=== PATIENT | male | born 1990 | race Caucasian/White ===

== ENCOUNTER 2019-06-10 05:55 | Day surgery (SDC) | payer OTHER ==
[~2019-06-10] VITALS: Ht 170.2 cm; Wt 118.4 kg
[~2019-06-10 05:55] MED LIST: DICLOFEN 3%-HYA30 GM; FLOMAX0.4 MG PO; HYDROXYZINE HCL50 MG PO; PAXIL40 MG PO; VASELINE18 ML TOP
[2019-06-10] MEDS ORDERED: SEBEX SHAMPOO118 ML TOP (06:05)
[2019-06-10] MEDS ORDERED: NON-ASPIRIN PA325 MG PO (06:14)
--- NOTE | 2019-06-10 08:52 | NUR ---
06/10/19 0852 Sheets,Carmel 0881 PT ARRIVED TO PACU ASLEEP AND SECOND RN DOING JAW THRUST TO MAINTAIN AIRWAY, O2 AT 6L VIA MASK. PT NONAROUSABLE TO PAINFUL STIMULI 0831 PT REACTIVE TO PAINFUL STIMULI AND ENCOURAGE TO DEEP BREATHE AND COUGH. PT BACK TO SLEEP. RESP EVEN AND UNLABORED, SMALL AMOUNT OF SNORING NOTED. 0839 PT WOKE TO PAINFUL STIMULI AND O2 SAT 100%, O2 MASK REMOVED. 0846 PT WOKE TO TACTILE STIMULI AND ENCOURAGED TO DEEP BREATHE AND COUGH, PT COUGHING OFF AND ON AND DEEP BREATHING. O2 SAT 90% AND INCREASED TO MID 90S. PT DENIES PAIN AND NAUSEA.
--- NOTE | 2019-06-10 09:13 | NUR ---
COFFEE, ICED WATER AND PUDDING GIVEN. OFFICERS AT BEDSIDE.
[2019-06-10] MEDS ORDERED: ULTRAM50 MG PO (09:26)
--- NOTE | 2019-06-10 09:53 | NUR ---
MORE ICED WATER AND COFFEE GIVEN.
--- NOTE | 2019-06-10 10:28 | NUR ---
LE 1000: PATIENT IS UP TO THE BATHROOM WITH OFFICER STANDBY. PATIENT VOIDS AND IS BACK IN BED. LE 1010: DISCHARGE INSTRUCTIONS ARE GIVEN AND PATIENT VERBALIZES UNDERSTANDING. PATIENT IS GETTING DRESSED IN PRESENCE OF OFFICERS. SLING IS ADJUSTED AFTER PATIENT IS DRESSED. PATIENT TRANSFERS HIMSELF TO THE WHEELCHAIR. LE 1025: ATTEMPT MADE TO CALL REPORT TO [facility] RN. MESSAGE LEFT.
--- NOTE | 2019-06-10 10:38 | NUR ---
REPORT GIVEN TO MARIA HUMPHREY. HIS QUESTIONS ARE ANSWERED.
--- NOTE | 2019-06-12 07:44 | OR ---
[facility] [address] [place], [place] [address] Signed DATE OF OPERATION: 06/10/2019 SURGEON: Hawk Bobby MD PREOPERATIVE DIAGNOSIS: Labral tear, right shoulder. POSTOPERATIVE DIAGNOSIS: Labral tear, right shoulder. PROCEDURE: Shoulder arthroscopy with debridement of fragmented labral tear. ANESTHESIA: General. SPECIMENS AND COMPLICATIONS: There were no specimens or complications. TOURNIQUET: Not used. BLOOD LOSS: Minimal. WHAT WAS DONE: The patient was taken to the operating room. After anesthesia was induced and airway secured, the patient was positioned, prepped and draped in a modified beach chair position. The patient was draped and the bony topography was outlined with a skin marking pen. The arthroscope inserted through the standard posterior portal. There was a posterior labral tear that had sort of fallen into the joint. It made visualization initially somewhat difficult. An anterior portal was created using a switching stick technique and we were able to tease the fragment off the front of the scope. It was clearly shredded and not amenable to repair. We therefore introduced the VAPR electrosurgical device and debrided the torn fragment of the labrum back to a stable margin. The remaining aspect of the shoulder joint was unremarkable. The remaining labrum was intact. Rotator cuff was intact. Biceps tendon was unremarkable. Biceps anchor was unremarkable. Rotator cuff insertions were intact without any fraying or tearing. We then moved the scope into the subacromial space. Subacromial bursectomy was performed. Inspection of the rotator cuff on the superior surface did not reveal Electronically Signed By: HAWK BOBBY MD 06/12/19 0744 PATIENT NAME: MARCIE MCMILLAN OPERATIVE REPORT DATE OF : 88 REPORT #: [id number] PHYSICIAN: HAWK BOBBY MD PCP: ROXIE LYLES MD REPORT IS CONFIDENTIAL AND NOT TO BE RELEASED WITHOUT AUTHORIZATION [facility] [address] [place], [place] [address] Signed any fraying, tearing, or other abnormality. The scope was withdrawn from the subacromial space after draining it and the portals were closed. Sterile dressings were applied. The patient was awakened and taken to the recovery room where he arrived in stable condition. Counts were correct and antibiotic protocols were followed. Hawk Bobby MD WFB/MODL /[id number] Copies: ~ Electronically Signed By: HAWK BOBBY MD 06/12/19 0744 PATIENT NAME: DEYANIRAMARCIE MO OPERATIVE REPORT DATE OF : 88 REPORT #: [id number] PHYSICIAN: HAWK BOBBY MD PCP: ROXIE LYLES MD REPORT IS CONFIDENTIAL AND NOT TO BE RELEASED WITHOUT AUTHORIZATION
== END 2019-06-10 10:15 | disposition home or self-care (01) ==
LOC: DS 05:55 → OPS 05:55 → DS 06:45 → OPS 06:45
PROVIDERS: Orthopaedic Surgery
PROC: 0RBJ4ZZ Excision of Right Shoulder Joint, Percutaneous Endoscopic Approach (ICD-10-PCS; principal; 2019-06-10 06:45)
DX: S43.491A Other sprain of right shoulder joint, initial encounter (principal); Z79.899 Other long term (current) drug therapy
CPT/HCPCS: 00450; 64415; 76942; J0330; J0690; J1100; J1885; J2250; J2405; J2704; J2795; J7121